=== PATIENT | male | born 1990 | race Two or more races ===

== ENCOUNTER 2022-06-24 14:39 | Emergency (ER) | payer BC ==
[~2022-06-24] VITALS: Ht 170.2 cm; Wt 83.9 kg
[2022-06-24] MEDS ORDERED: LISINOPRIL10 MG PO (15:05)
== END 2022-06-24 21:35 | disposition home or self-care (01) ==
LOC: ER 14:39
DX: E86.0 Dehydration (principal); I10 Essential (primary) hypertension